=== PATIENT | female | born 1945 | race Caucasian/White ===

== ENCOUNTER → 2017-05-27 | Outpatient (CLI) | payer MEDICARE, OTHER ==
[~2017-05-27] MED LIST: ANTI-ANXIETY; CEPACOL SORE T1 EACH MM; CINA30 PO; CLON.2 PO; DARB200I SC; DOCU100 PO; DOXY100 PO; ESTMEDA; Fosrenol1000 MG PO; LEVFLO500 PO; LISI20 PO; LORA.5 PO; LOSA50 PO; MIDO5 PO; Meribin5 MG PO; NEBI5 PO; Norco 10-325 T1 EACH PO; Norco 5-325 Ta1 EACH PO; OMEP20ER PO; ONDA8 PO; OSEL75CA PO; ROBITUSSIN COU118 M1 PO; Rena-Vite Tabl0.8 MG PO; Renal Caps Softg1 MG PO; SEVEC800 PO; STOOL SOFTENER100 MG PO; Tylenol325 MG PO; Vitamin D2000 UNIT PO
[2017-05-29 10:44] LABS: Protein, Total 7.2 g/dL (6.1-7.8)
[2017-05-30 15:05] LABS: Albumin 4.1 g/dL (3.3-4.8); Albumin 57.1 % (45.0-80.0); Monoclonal Protein 0.4 g/dL; Monoclonal Protien % 5.3 %
== END | disposition home or self-care (01) ==
LOC: LAB 14:53
PROVIDERS: Internal Medicine Nephrology
DX: E85.9 Amyloidosis, unspecified (principal)
CPT/HCPCS: 83883; 84165; 86334

== ENCOUNTER 2017-05-30 16:55 | Inpatient (IN) | END 2017-06-02 13:05 | disposition home or self-care (01) | DRG 312 ==

== ENCOUNTER 2017-06-06 16:30 | Inpatient (IN) | payer MEDICARE, OTHER ==
[~2017-06-06] VITALS: Ht 162.6 cm; Wt 51.6 kg
[~2017-06-06 16:30] MED LIST changes: -ANTI-ANXIETY; -DOCU100 PO; -LEVFLO500 PO; -Meribin5 MG PO
[2017-06-06] MEDS ORDERED: ANTI-ANXIETY (16:49)
[2017-06-06 17:06] LABS: BASOPHILS ABSOLUTE AUTO 0.04 K/mm3 (0.00-0.23); BASOPHILS PERCENT AUTO 1 % (0-2); EOSINOPHILS ABSOLUTE AUTO 0.22 K/mm3 (0.00-0.68); EOSINOPHILS PERCENT AUTO 5 % (0-6); Hemoglobin 9.4 g/dL (11.5-16.0); IMMATURE GRAN ABSOLUTE AUTO 0.02 K/mm3 (0.00-0.10); IMMATURE GRAN PERCENT AUTO 0 % (0-1); LYMPHOCYTES ABSOLUTE AUTO 0.49 K/mm3 (0.84-5.20); LYMPHOCYTES PERCENT AUTO 10 % (21-46); MONOCYTES ABSOLUTE AUTO 0.45 K/mm3 (0.16-1.47); MONOCYTES PERCENT AUTO 10 % (4-13); Mean Corpuscular HGB 30.4 pg (26.0-34.0); Mean Corpuscular HGB Conc 31.3 g/dL (31.5-36.5); Mean Corpuscular Volume 97 fL (80-100); Mean Platelet Volume 12.3 fL (9.1-12.4); NEUTROPHILS PERCENT AUTO 74 % (41-73); Platelet Count 118 K/mm3 (150-400); RDW Coefficient Variation 17.8 % (11.7-14.2); RDW Standard Deviation 63.6 fL (35.1-46.3); Red Blood Cell Count 3.09 M/mm3 (3.80-5.20); White Blood Cell Count 4.72 K/mm3 (4.00-11.30)
[2017-06-06 17:21] LABS: Calcium, Blood 8.7 mg/dL (8.5-10.1); Creatinine, Blood 3.13 mg/dL (0.40-1.00); Potassium, Blood 3.7 mmol/L (3.5-5.5)
[2017-06-06 20:40] LABS: Calcium, Ionized (POC) 1.09 mmol/L (1.10-1.46); Chloride (POC) 98 mmol/L (98-108); Glucose (ISTAT POC) 119 mg/dL (70-99); Hemoglobin (POC) 10.5 g/dL (12.0-16.0); Potassium (POC) 4.3 mmol/L (3.5-5.5); Sodium (POC) 140 mmol/L (135-148); Total CO2 (POC) 32 mmol/L (21-32)
[2017-06-06 20:53] LABS: BASOPHILS ABSOLUTE AUTO 0.03 K/mm3 (0.00-0.23); BASOPHILS PERCENT AUTO 1 % (0-2); EOSINOPHILS PERCENT AUTO 4 % (0-6); Hematocrit 30.9 % (33.0-51.0); Hemoglobin 9.3 g/dL (11.5-16.0); IMMATURE GRAN PERCENT AUTO 0 % (0-1); LYMPHOCYTES ABSOLUTE AUTO 0.77 K/mm3 (0.84-5.20); LYMPHOCYTES PERCENT AUTO 15 % (21-46); MONOCYTES ABSOLUTE AUTO 0.55 K/mm3 (0.16-1.47); MONOCYTES PERCENT AUTO 11 % (4-13); Mean Corpuscular HGB 29.9 pg (26.0-34.0); Mean Corpuscular HGB Conc 30.1 g/dL (31.5-36.5); Mean Corpuscular Volume 99 fL (80-100); Mean Platelet Volume 11.7 fL (9.1-12.4); NEUTROPHILS PERCENT AUTO 70 % (41-73); Platelet Count 114 K/mm3 (150-400); RDW Coefficient Variation 18.1 % (11.7-14.2); RDW Standard Deviation 66.5 fL (35.1-46.3); Red Blood Cell Count 3.11 M/mm3 (3.80-5.20); White Blood Cell Count 5.15 K/mm3 (4.00-11.30)
[2017-06-06 21:05] LABS: International Normalized Ratio 1.15
[2017-06-06 21:12] LABS: Albumin, Blood 3.2 g/dL (3.4-5.0); Albumin/Globulin Ratio 0.8 (0.8-1.8); Bilirubin, Total 0.4 mg/dL (0.1-1.0); Bun/Creatinine Ratio 8.8 (12.0-20.0); Calcium, Blood 8.8 mg/dL (8.5-10.1); Creatinine, Blood 3.76 mg/dL (0.40-1.00); Globulin, Blood 4.2 g/dL (2.2-4.0); Potassium, Blood 4.3 mmol/L (3.5-5.5); Total Protein, Blood 7.4 g/dL (6.4-8.2); Troponin I 0.129 ng/mL (0.000-0.040)
[2017-06-06 23:46] LABS: PCO2 Arterial 43.8 mmHg (35-45); PO2 Arterial 76.2 mmHg (80-100); pH Blood Arterial 7.49 (7.35-7.45)
[2017-06-07] MEDS ORDERED: Meribin5 MG PO (00:38)
[2017-06-07 04:23] LABS: BASOPHILS ABSOLUTE AUTO 0.04 K/mm3 (0.00-0.23); BASOPHILS PERCENT AUTO 1 % (0-2); EOSINOPHILS ABSOLUTE AUTO 0.26 K/mm3 (0.00-0.68); EOSINOPHILS PERCENT AUTO 4 % (0-6); Hemoglobin 8.8 g/dL (11.5-16.0); IMMATURE GRAN ABSOLUTE AUTO 0.02 K/mm3 (0.00-0.10); IMMATURE GRAN PERCENT AUTO 0 % (0-1); LYMPHOCYTES ABSOLUTE AUTO 0.59 K/mm3 (0.84-5.20); LYMPHOCYTES PERCENT AUTO 9 % (21-46); MONOCYTES ABSOLUTE AUTO 0.86 K/mm3 (0.16-1.47); MONOCYTES PERCENT AUTO 13 % (4-13); Mean Corpuscular HGB 29.6 pg (26.0-34.0); Mean Corpuscular HGB Conc 30.3 g/dL (31.5-36.5); Mean Corpuscular Volume 98 fL (80-100); Mean Platelet Volume 12.5 fL (9.1-12.4); NEUTROPHILS ABSOLUTE AUTO 4.66 K/mm3 (1.96-9.15); NEUTROPHILS PERCENT AUTO 73 % (41-73); Platelet Count 118 K/mm3 (150-400); RDW Standard Deviation 64.2 fL (35.1-46.3); Red Blood Cell Count 2.97 M/mm3 (3.80-5.20); White Blood Cell Count 6.43 K/mm3 (4.00-11.30)
[2017-06-07 04:47] LABS: Magnesium, Blood 2.8 mg/dL (1.6-2.4)
[2017-06-07 04:48] LABS: Alanine Aminotransfer (ALT/SGP 43 U/L (12-78); Albumin, Blood 3.1 g/dL (3.4-5.0); Albumin/Globulin Ratio 0.8 (0.8-1.8); Alk Phos 231 U/L (50-136); Anion Gap 9 mmol/L (6-16); Aspartate Aminotrans (AST/SGOT 40 U/L (12-37); Bilirubin, Total 0.5 mg/dL (0.1-1.0); Blood Urea Nitrogen 41 mg/dL (8-24); Bun/Creatinine Ratio 9.7 (12.0-20.0); CO2, Blood 32 mmol/L (21-32); Calcium, Blood 8.8 mg/dL (8.5-10.1); Chloride, Blood 100 mmol/L (98-108); Creatinine, Blood 4.23 mg/dL (0.40-1.00); Globulin, Blood 3.8 g/dL (2.2-4.0); Glomerular Filtration Rate 11 (60-); Glucose, Blood 85 mg/dL (70-99); Phosphorus, Blood 5.2 mg/dL (2.5-4.9); Potassium, Blood 4.2 mmol/L (3.5-5.5); Sodium, Blood 141 mmol/L (136-145); Total Protein, Blood 6.9 g/dL (6.4-8.2)
[2017-06-07 04:54] LABS: Troponin I 0.355 ng/mL (0.000-0.040)
[2017-06-07 13:26] LABS: Troponin I 0.418 ng/mL (0.000-0.040)
[2017-06-08 04:46] LABS: BASOPHILS ABSOLUTE AUTO 0.04 K/mm3 (0.00-0.23); BASOPHILS PERCENT AUTO 1 % (0-2); EOSINOPHILS ABSOLUTE AUTO 0.43 K/mm3 (0.00-0.68); EOSINOPHILS PERCENT AUTO 7 % (0-6); Hematocrit 31.4 % (33.0-51.0); Hemoglobin 9.3 g/dL (11.5-16.0); IMMATURE GRAN ABSOLUTE AUTO 0.04 K/mm3 (0.00-0.10); IMMATURE GRAN PERCENT AUTO 1 % (0-1); LYMPHOCYTES ABSOLUTE AUTO 0.67 K/mm3 (0.84-5.20); LYMPHOCYTES PERCENT AUTO 11 % (21-46); MONOCYTES ABSOLUTE AUTO 0.87 K/mm3 (0.16-1.47); MONOCYTES PERCENT AUTO 14 % (4-13); Mean Corpuscular HGB 29.4 pg (26.0-34.0); Mean Corpuscular HGB Conc 29.6 g/dL (31.5-36.5); Mean Corpuscular Volume 99 fL (80-100); Mean Platelet Volume 12.3 fL (9.1-12.4); NEUTROPHILS ABSOLUTE AUTO 4.04 K/mm3 (1.96-9.15); NEUTROPHILS PERCENT AUTO 66 % (41-73); Platelet Count 124 K/mm3 (150-400); RDW Coefficient Variation 18.3 % (11.7-14.2); RDW Standard Deviation 66.8 fL (35.1-46.3); Red Blood Cell Count 3.16 M/mm3 (3.80-5.20); White Blood Cell Count 6.09 K/mm3 (4.00-11.30)
[2017-06-08 05:20] LABS: Albumin, Blood 3.1 g/dL (3.4-5.0); Anion Gap 10 mmol/L (6-16); Blood Urea Nitrogen 61 mg/dL (8-24); Bun/Creatinine Ratio 9.8 (12.0-20.0); CO2, Blood 29 mmol/L (21-32); Calcium, Blood 9.4 mg/dL (8.5-10.1); Chloride, Blood 102 mmol/L (98-108); Glomerular Filtration Rate 7 (60-); Glucose, Blood 96 mg/dL (70-99); Magnesium, Blood 3.1 mg/dL (1.6-2.4); Potassium, Blood 4.6 mmol/L (3.5-5.5); Sodium, Blood 141 mmol/L (136-145)
[2017-06-08 11:43] LABS: Hematocrit 29.6 % (33.0-51.0)
[2017-06-09 04:54] LABS: BASOPHILS ABSOLUTE AUTO 0.02 K/mm3 (0.00-0.23); BASOPHILS PERCENT AUTO 0 % (0-2); EOSINOPHILS ABSOLUTE AUTO 0.31 K/mm3 (0.00-0.68); EOSINOPHILS PERCENT AUTO 6 % (0-6); Hematocrit 29.5 % (33.0-51.0); Hemoglobin 8.8 g/dL (11.5-16.0); IMMATURE GRAN ABSOLUTE AUTO 0.02 K/mm3 (0.00-0.10); IMMATURE GRAN PERCENT AUTO 0 % (0-1); LYMPHOCYTES ABSOLUTE AUTO 0.47 K/mm3 (0.84-5.20); LYMPHOCYTES PERCENT AUTO 8 % (21-46); MONOCYTES ABSOLUTE AUTO 0.74 K/mm3 (0.16-1.47); MONOCYTES PERCENT AUTO 13 % (4-13); Mean Corpuscular HGB 29.1 pg (26.0-34.0); Mean Corpuscular HGB Conc 29.8 g/dL (31.5-36.5); Mean Corpuscular Volume 98 fL (80-100); NEUTROPHILS ABSOLUTE AUTO 4.04 K/mm3 (1.96-9.15); NEUTROPHILS PERCENT AUTO 72 % (41-73); Platelet Count 115 K/mm3 (150-400); RDW Coefficient Variation 17.8 % (11.7-14.2); RDW Standard Deviation 63.7 fL (35.1-46.3); Red Blood Cell Count 3.02 M/mm3 (3.80-5.20)
[2017-06-09 05:17] LABS: Anion Gap 8 mmol/L (6-16); Blood Urea Nitrogen 46 mg/dL (8-24); Bun/Creatinine Ratio 8.8 (12.0-20.0); CO2, Blood 29 mmol/L (21-32); Calcium, Blood 9.4 mg/dL (8.5-10.1); Chloride, Blood 97 mmol/L (98-108); Creatinine, Blood 5.22 mg/dL (0.40-1.00); Glomerular Filtration Rate 9 (60-); Glucose, Blood 97 mg/dL (70-99); Magnesium, Blood 2.7 mg/dL (1.6-2.4); Phosphorus, Blood 4.9 mg/dL (2.5-4.9); Potassium, Blood 4.4 mmol/L (3.5-5.5); Sodium, Blood 134 mmol/L (136-145)
[2017-06-09] MEDS ORDERED: DOCU100 PO (14:41)
[2017-06-09] MEDS ORDERED: LEVFLO500 PO (14:41)
== END 2017-06-09 16:40 | disposition home health service (06) | DRG 314 ==
LOC: ER 16:30 → ICUW 16:31 → ICUE 16:31 → MEDS 06-07 21:04 → ENPENDDIS 06-09 10:00 → MEDS 06-09 16:40
PROVIDERS: Emergency Medicine; Family Medicine; Internal Medicine; Internal Medicine Nephrology
PROC: 5A1935Z Respiratory Ventilation, Less than 24 Consecutive Hours (ICD-10-PCS; principal; 2017-06-06)
PROC: 0BH17EZ Insertion of Endotracheal Airway into Trachea, Via Natural or Artificial Opening (ICD-10-PCS; 2017-06-06)
DX: I95.9 Hypotension, unspecified (principal); J18.9 Pneumonia, unspecified organism; I13.2 Hypertensive heart and chronic kidney disease with heart failure and with stage 5 chronic kidney disease, or end stage renal disease; N17.9 Acute kidney failure, unspecified; Z94.84 Stem cells transplant status; E85.9 Amyloidosis, unspecified; E11.22 Type 2 diabetes mellitus with diabetic chronic kidney disease; I50.9 Heart failure, unspecified; N18.6 End stage renal disease; D63.1 Anemia in chronic kidney disease; E86.9 Volume depletion, unspecified; R09.02 Hypoxemia; Z99.2 Dependence on renal dialysis; Z99.81 Dependence on supplemental oxygen; Z88.5 Allergy status to narcotic agent
CPT/HCPCS: 31500; 36415; 36600; 51702; 70450; 71046; 80047; 80048; 80053; 80069; 82550; 82803; 83605; 83735; 84100; 84484; 85014; 85018; 85025; 85610; 86850; 86900; 86901; 86922; 87040; 93005; 93010; 94002; 96361; 96365; 96372; 96375; 99291; 99292; G0378; J0330; J0456; J0881; J1650; J1956; J2060; J2250; J3370; J7030; J7050